=== PATIENT | female | born 1940 | race Caucasian/White ===

== ENCOUNTER → 2018-01-12 | Outpatient (CLI) | payer OTHER | LOC: HYPER 06:59 → EDBD 06:59 → HYPER 15:21 | DX: T81.31XA Disruption of external operation (surgical) wound, not elsewhere classified, initial encounter (principal); I10 Essential (primary) hypertension; M10.9 Gout, unspecified; F32.9 Major depressive disorder, single episode, unspecified; F41.1 Generalized anxiety disorder; F41.0 Panic disorder [episodic paroxysmal anxiety]; Z79.4 Long term (current) use of insulin; Z87.891 Personal history of nicotine dependence; Z90.710 Acquired absence of both cervix and uterus; Y92.89 Other specified places as the place of occurrence of the external cause; Y83.8 Other surgical procedures as the cause of abnormal reaction of the patient, or of later complication, without mention of misadventure at the time of the procedure ==

== ENCOUNTER → 2018-01-22 | Outpatient (CLI) | payer OTHER ==
[2018-01-22 10:05] LABS: CREATININE 1.1 mg/dL (0.6-1.0)
== END | disposition home or self-care (01) ==
LOC: RAD 09:09
PROVIDERS: Emergency Medicine
DX: L02.211 Cutaneous abscess of abdominal wall (principal); E11.9 Type 2 diabetes mellitus without complications; Z90.710 Acquired absence of both cervix and uterus; Z98.890 Other specified postprocedural states; Z79.899 Other long term (current) drug therapy; Z91.040 Latex allergy status

== ENCOUNTER → 2018-01-28 | Outpatient (CLI) | payer OTHER | LOC: HYPER 07:00 | DX: T81.89XD Other complications of procedures, not elsewhere classified, subsequent encounter (principal); E11.9 Type 2 diabetes mellitus without complications; I10 Essential (primary) hypertension; M10.9 Gout, unspecified; F32.9 Major depressive disorder, single episode, unspecified; F41.1 Generalized anxiety disorder; F41.0 Panic disorder [episodic paroxysmal anxiety]; Z86.14 Personal history of Methicillin resistant Staphylococcus aureus infection; Z79.4 Long term (current) use of insulin; Z87.891 Personal history of nicotine dependence; Y83.8 Other surgical procedures as the cause of abnormal reaction of the patient, or of later complication, without mention of misadventure at the time of the procedure ==

== ENCOUNTER → 2018-02-15 | Outpatient (CLI) | payer OTHER | LOC: HYPER 06:53 | DX: T81.89XD Other complications of procedures, not elsewhere classified, subsequent encounter (principal); M10.9 Gout, unspecified; I10 Essential (primary) hypertension; F32.9 Major depressive disorder, single episode, unspecified; F41.1 Generalized anxiety disorder; F41.0 Panic disorder [episodic paroxysmal anxiety]; Z86.14 Personal history of Methicillin resistant Staphylococcus aureus infection; Z79.4 Long term (current) use of insulin; Z87.891 Personal history of nicotine dependence; Y83.8 Other surgical procedures as the cause of abnormal reaction of the patient, or of later complication, without mention of misadventure at the time of the procedure ==

== ENCOUNTER → 2018-03-22 | Outpatient (CLI) | payer OTHER | LOC: HYPER 07:05 | DX: T81.89XD Other complications of procedures, not elsewhere classified, subsequent encounter (principal); E11.9 Type 2 diabetes mellitus without complications; I10 Essential (primary) hypertension; M10.9 Gout, unspecified; F32.9 Major depressive disorder, single episode, unspecified; F41.1 Generalized anxiety disorder; Z86.14 Personal history of Methicillin resistant Staphylococcus aureus infection; Z79.4 Long term (current) use of insulin; Z87.891 Personal history of nicotine dependence; Y83.8 Other surgical procedures as the cause of abnormal reaction of the patient, or of later complication, without mention of misadventure at the time of the procedure ==

== ENCOUNTER → 2018-04-22 | Outpatient (CLI) | payer OTHER | LOC: HYPER 05:30 | DX: T81.89XD Other complications of procedures, not elsewhere classified, subsequent encounter (principal); E11.9 Type 2 diabetes mellitus without complications; I10 Essential (primary) hypertension; M10.9 Gout, unspecified; F32.9 Major depressive disorder, single episode, unspecified; F41.1 Generalized anxiety disorder; F41.0 Panic disorder [episodic paroxysmal anxiety]; Z79.4 Long term (current) use of insulin; Z86.14 Personal history of Methicillin resistant Staphylococcus aureus infection; Z87.891 Personal history of nicotine dependence; Y83.8 Other surgical procedures as the cause of abnormal reaction of the patient, or of later complication, without mention of misadventure at the time of the procedure ==

== ENCOUNTER → 2018-06-29 | Outpatient (CLI) | payer OTHER | LOC: HYPER 05-20 07:20 | DX: T81.89XD Other complications of procedures, not elsewhere classified, subsequent encounter (principal); E11.9 Type 2 diabetes mellitus without complications; I10 Essential (primary) hypertension; M10.9 Gout, unspecified; F32.9 Major depressive disorder, single episode, unspecified; F41.9 Anxiety disorder, unspecified; Z87.891 Personal history of nicotine dependence; Z86.14 Personal history of Methicillin resistant Staphylococcus aureus infection; Z79.4 Long term (current) use of insulin; Y83.8 Other surgical procedures as the cause of abnormal reaction of the patient, or of later complication, without mention of misadventure at the time of the procedure ==

== ENCOUNTER → 2019-07-04 | Outpatient (CLI) | payer OTHER ==
[~2019-07-04] VITALS: Ht 170.2 cm; Wt 95.3 kg
[~2019-07-04] MED LIST: ALLOPURINOL 30300 M1 PO; DICLOFENAC SODI75 MG PO; LIPITOR 40 MG T40 M1 PO; METFORMIN HCL500 MG PO; NEURONTIN600 MG PO; NORCO 10-325 T1 EACH PO; VALSARTAN320 MG PO; VENLAFAXINE HCL75 M1 PO; VICTOZA 3-0.6 MG/0.1 SUBQ; VITAMIN D35000 UNI2 PO
[2019-07-04 13:40] LABS: URINE BILIRUBIN NEGATIVE (Negative); URINE BLOOD NEGATIVE (Negative); URINE CLARITY CLEAR; URINE COLOR YELLOW; URINE GLUCOSE-RANDOM* NEGATIVE (Negative); URINE KETONES NEGATIVE (Negative); URINE LEUKOCYTES-REFLEX 2+ (Negative); URINE NITRITE-REFLEX NEGATIVE (Negative); URINE PROTEIN (DIPSTICK) NEGATIVE (Negative); URINE SPECIFIC GRAVITY 1.015 (1.005-1.035); URINE UROBILINOGEN 0.2 E.U./dl (0.2-1.0)
[2019-07-04 13:43] LABS: BACTERIA-REFLEX 1-9 Few /HPF (None Seen); CASTS None Seen /LPF (None Seen); CRYSTALS None Seen /LPF (None Seen); SQUAMOUS 4-10 Moderate /LPF (0-3); URINE RBC None Seen /HPF (0-2); URINE WBC-REFLEX 0-5 Rare /HPF (0-5)
[2019-07-04 14:11] LABS: HEMATOCRIT 38.7 % (37.0-47.0); HEMOGLOBIN 12.3 gm/dL (12.0-15.0); MCH 28.8 pg (26.0-34.0); MCHC 31.9 g/dL (28.0-37.0); MCV 90.3 fL (80.0-100.0); RBC 4.28 mil/uL (4.20-5.00); RDW 15.9 % (10.5-14.5); WBC 5.4 thou/uL (4.0-11.0)
[2019-07-04 14:28] LABS: ALBUMIN 3.6 g/dL (3.4-5.0); CALCIUM 9.1 mg/dL (8.5-10.1); CREATININE 1.2 mg/dL (0.6-1.0); POTASSIUM 4.7 mmol/L (3.5-5.1)
[2019-07-04 14:29] LABS: PROTIME 10.1 Seconds (9.3-11.4)
--- NOTE | 2019-07-29 11:43 | EKG ---
[facility] [place] [address] ELECTROCARDIOGRAM REPORT Name: ALVA RANDOLPH Room #: REG [facility]#: [id number] Admission: 07/04/19 Attend Phys: Zachery Valentine MD Discharge: Date of : 44 Report #: [id number] THIS REPORT FOR: cc: Physician not on staff Physician not on staff Raz Easley MD [facility] ~ THIS REPORT FOR: //name// [facility] Test Date: 2019-07-04 Test Time: 14:08:54 Pat Name: ALVA RANDOLPH Department: Room: Gender: F Final Application Reviewer: maira : 1940 Requested By: Zachery Valentine Order Number: [id number] MD: Raz Easley Measurements Intervals [place] Rate: 52 P: 35 CO: 214 QRS: -18 QRSD: 106 T: 66 QT: 409 QTc: 381 Interpretive Statements Sinus rhythm Ventricular premature complex Inferior infarct, old Anterior infarct, old No previous ECG available for comparison Electronically Signed On 07-04-2019 15:54:09 CDT by Raz Easley [email or web address] <ELECTRONICALLY SIGNED> By: Raz Easley MD, [facility] 07/04/19 1554 1408 1408 Raz Easley MD, [facility] /EPI
== END ==
LOC: PAC 12:35 → TBA 07-18 08:05 → PRE 07-18 08:34 → EDSTATUS 07-18 13:25 → PRE 07-18 16:03
PROVIDERS: Orthopaedic Surgery
DX: M17.12 Unilateral primary osteoarthritis, left knee (principal); I25.2 Old myocardial infarction

== ENCOUNTER 2019-09-28 13:14 | Day surgery (SDC) | payer OTHER ==
[2019-09-21 11:39] LABS: HEMATOCRIT 39.6 % (37.0-47.0); MCH 29.7 pg (26.0-34.0); MCHC 32.7 g/dL (28.0-37.0); MCV 90.7 fL (80.0-100.0); RBC 4.37 mil/uL (4.20-5.00); WBC 4.7 thou/uL (4.0-11.0)
[2019-09-21 11:42] LABS: URINE BILIRUBIN NEGATIVE (Negative); URINE BLOOD NEGATIVE (Negative); URINE CLARITY CLEAR; URINE COLOR YELLOW; URINE GLUCOSE-RANDOM* 1+ (Negative); URINE KETONES NEGATIVE (Negative); URINE NITRITE-REFLEX NEGATIVE (Negative); URINE PROTEIN (DIPSTICK) NEGATIVE (Negative); URINE SPECIFIC GRAVITY 1.025 (1.005-1.035); URINE UROBILINOGEN 0.2 E.U./dl (0.2-1.0)
[2019-09-21 12:00] LABS: PROTIME 9.7 Seconds (9.3-11.4); URINE LEUKOCYTES-REFLEX 1+ (Negative)
[2019-09-21 12:08] LABS: CALCIUM 9.1 mg/dL (8.5-10.1); CREATININE 1.1 mg/dL (0.6-1.0); POTASSIUM 4.7 mmol/L (3.5-5.1)
[2019-09-21 13:07] LABS: CASTS None Seen /LPF (None Seen); SQUAMOUS 0-3 Few /LPF (0-3)
[2019-09-21 13:08] LABS: BACTERIA-REFLEX 1-9 Few /HPF (None Seen); CRYSTALS None Seen /LPF (None Seen); URINE RBC None Seen /HPF (0-2); URINE WBC-REFLEX 6-15 Few /HPF (0-5)
[2019-09-22 01:08] LABS: GLYCOHEMOGLOBIN (HGB A1C) 7.3 % (4.8-5.6)
[~2019-09-28] VITALS: Ht 170.2 cm; Wt 98.4 kg
[~2019-09-28 13:14] MED LIST changes: +VALSARTAN40 MG PO
[2019-09-28 14:45] VITALS: BP 170/101
[2019-09-28 18:03] VITALS: BP 150/84
[2019-09-28 18:28] VITALS: BP 150/84
[2019-09-28 19:15] VITALS: BP 159/74
--- NOTE | 2019-09-28 19:50 | NUR ---
PT CARE ASSUMED AT 1800 FROM THE OR. PT UP TO THE BATHROOM WITH NO URINATION. SHE EXPERIENCED NAUSEA AND WAS GIVEN ZOFRAN. DIET HAS NOT BEEN ADVANCED YET. NO VOMITTING. PT DECLINES OVI HOSES BUT WILL TOLERATE SCD'S. POLARPAC AND MARI DRESSING IN PLACE. ADMISSION COMPLEETE AND CONSENTS SIGNED. PAIN IS TOLERATED WELL WITH MEDICATION. FALL PROTOCOL IN PLACE. CALL LIGHT IN REACH. WILL CONTINUE TO MONITOR. REPORT GIVEN TO HORACE CHANG.
[2019-09-29 02:40] LABS: HEMATOCRIT 36.9 % (37.0-47.0); HEMOGLOBIN 11.8 gm/dL (12.0-15.0); MCH 29.2 pg (26.0-34.0); MCV 91.4 fL (80.0-100.0); RBC 4.04 mil/uL (4.20-5.00); RDW 15.8 % (10.5-14.5); WBC 7.6 thou/uL (4.0-11.0)
--- NOTE | 2019-09-29 03:25 | NUR ---
PT AOX4. PT REPORTS PAIN IN LEFT KNEE. PT RECEIVING PRN PO NORCO Q4HR AND HAS PRN TORADOL Q8HR X6 DOSES AVAILABLE. PT AMBULATES WITH WALKER AND X1 ASSIST TO TOILET. PT INDEPENDENT WITH REPOSITIONING. PT DENIES SOB. PT REPORTS ONSET OF REDDENED AREA FROM ANTERIOR OF HAND TO FOREARM. AREA OBSERVED TENDER AND SWOLLEN, PAIN NOTED TO INCREASE WHEN PT MAKES A FIST. LAYBOY OPERATOR PROVIDER NOTIFIED, RECEIVED ORDERS FOR STAT URIC ACID LAB, PO ALLUPURINOL 150MG QHS AND ENCOURAGED TO APPLY WARM COMPRESS FOR POSSIBLE GOUT EXACERBATION. PT TOLERATING PO INTAKE OF FLUIDS AND REGULAR DIET. PT ENCOURAGED TO NOTIFY STAFF FOR ALL NEEDS. PT REQUESTING ELEVATED TOILET. CALL LIGHT WITHIN REACH, BED IN LOWEST POSITION, BED ALARM ON. WILL CONTINUE TO MONITOR. WILL CONTINUE TO MONITOR.
[2019-09-29 05:00] VITALS: BP 164/63
[2019-09-29 07:32] VITALS: BP 141/82
--- NOTE | 2019-09-29 11:49 | NUR ---
ASSESSMENT: CM REVIEWED CHART AND SPOKE WITH PATIENT. PT IS ALERT AND ORIENTED X4. PT IS A TOTAL KNEE REPLACEMENT. PT REPORTS SHE LIVES IN A FIRST FLOOR APT WITH HER . PT REPORTS SHE HAS NO STEPS TO ENTER THE APT OR ONCE INSIDE. THAT SHE HAS A CANE AT HOME BUT IS GOING TO NEED A WALKER. CM ASKED IF PT HAD A PREFERENCE OF [employer] AND PT DOES NOT. CM NOTIFIED LIASON AT [facility] [facility] TO SEE IF THEY CAN PROVIDE HER WITH A WALKER. PT REPORTS SHE HAD HH MANY YEARS AGO BUT SHE HAS OUTPATIENT THERAPY SCHEDULED TO START TOMORROW AT [facility] OFF [address]. PT REPORTS SHE WILL HAVE NO OTHER NEEDS THEN A WALKER. CM WILL CONTINUE TO FOLLOW AND AWAIT TO HEAR BACK FROM [facility].
[2019-09-29 14:34] VITALS: BP 141/82
--- NOTE | 2019-09-29 15:10 | NUR ---
PT ASSESSED AT START OF SHIFT. PT PROGRESSING WELL W/ THERAPY. PAIN UNDER CONTROL. DSNG D&I. DISCHARED AT THIS TIME W/ ALL BELONGINGS.
--- NOTE | 2019-10-06 12:09 | O ---
[facility] [place] [address] OPERATIVE REPORT Name: ALVA RANDOLPH Room #: DEP [facility] M..#: [id number] Admission: 09/28/19 Attend Phys: Zachery Valentine MD Discharge: 09/29/19 Date of : 44 Report #: [id number] THIS REPORT FOR: cc: LIZETT NIÑO Physician not on staff Zachery Valentine MD ~ CC: LIZETT NIÑO Physician staff Zachery Valentine DATE OF SERVICE: 09/28/2019 PREOPERATIVE DIAGNOSIS: Left knee osteoarthritis. POSTOPERATIVE DIAGNOSIS: Left knee osteoarthritis. PROCEDURE: Left total knee arthroplasty using Navio robotic family practice physician assistant. SURGEON: Zachery Valentine MD. MEAL TEMPERER: Agnes Epps PA-C INDICATIONS FOR MEAL TEMPERER: Throughout the case, extensive retraction and manipulation of the knee was required. This was afforded to my family practice physician assistant. ANESTHESIA: LMA with an adductor canal block. IMPLANTS: [employer] size 6 Journey II BCS cobalt chrome femur, size 4 tibia, size 10 polyethylene and size 32 patella. TOURNIQUET TIME: 61 minutes. ESTIMATED BLOOD LOSS: 25 mL. COMPLICATIONS: None. SPECIMENS: None. CONDITION UPON LEAVING THE OPERATING ROOM: Stable. INDICATIONS FOR PROCEDURE: The patient is a 79-year-old female with severe left knee osteoarthritis. She failed conservative treatment for this and after discussion with her, she elected for left total knee arthroplasty. DESCRIPTION OF PROCEDURE: Risks, benefits, alternatives, and complications were discussed in detail with the patient including but not limited to risk of [facility] [address] [place] [address] OPERATIVE REPORT Name: ALVA RANDOLPH Room #: DEP [facility] M.R.#: [id number] Admission: 09/28/19 Attend Phys: Zachery Vlaentine MD Discharge: 09/29/19 Date of : 44 Report #: [id number] anesthesia, risk of damage to nerves, arteries, blood vessels, risk for infection, bleeding, risk for continued knee pain and need for reoperation. Informed consent was obtained from the patient. Left knee was appropriately marked in the preoperative holding area. Adductor canal block was placed by anesthesia. IV Ancef was given for preoperative antibiotics. She was brought to the operating room and placed in supine position on the operating room table. LMA anesthesia was induced without complication. Tourniquet was placed on the left thigh. Left lower extremity was prepped and draped in normal sterile fashion. Timeout was performed properly identifying the patient and procedure as well as the instrumentation and implants. All in the operating room were in agreement. Left lower extremity was exsanguinated, tourniquet was inflated. Tourniquet time was 61 minutes. Standard midline approach to the knee was made with #10-blade through the skin. Dissection was taken down sharply to the fascia and deep flaps were developed medially and laterally. Fresh #10-blade was used to make a medial parapatellar arthrotomy and the knee was inspected. There was severe tricompartmental osteoarthritis. ACL and PCL were removed sharply. Reference pins were placed in the femur and the tibia. The knee was then digitally mapped using the One[employer] robotic system. Intraoperative plan was made. We sized the size 6 femur with a size 4 tibia and a size 10 spacer. After acceptance of the intraoperative plan, the distal femoral cut was made with a Navio lino. The distal femoral cutting block was then pinned in place and chamfer cuts were made. Attention was turned to the tibia. Menisci removed with Bovie cautery. Tibial resection guide was pinned in place using the Navio for placement and tibial resection was made. After this, flexion and extension gaps were checked and found to have good balance in flexion and extension both medially and laterally. Tibia was sized, found to be a size 4. Size 4 tibial trial was placed, pinned and punched. A size 6 femoral trial was placed and the box cut was made. This was then trialed with a size 10 polyethylene. Knee was taken through range of motion, found to be stable, found to have good balance in flexion and extension both medially and laterally. This was verified both digitally as well as manually. A 9 mm was resected from the posterior surface of the patella and a size 32 patellar trial button was placed. Knee was taken through range of motion, found to be stable, found to have good patellar tracking. Trial components were removed. Bony ends were thoroughly irrigated with normal saline. A final size 4 tibia, size 6 Journey II BCS cobalt chrome femur and a size 32 patella were cemented in place using standard cementation techniques. While the cement cured, a periarticular injection consisting of morphine, ropivacaine, epinephrine and Toradol was placed around the knee joint capsule. After the cement cured, tourniquet was deflated. Hemostasis was obtained with Bovie cautery. Final size 10 polyethylene was placed. A gram of vancomycin was placed deep in the joint. The fascia was closed with 0 Vicryl, skin was closed with 2-0 Vicryl, 3-0 Monocryl, Dermabond and a MARI dressing was [address] [address] OPERATIVE REPORT Name: ALVA RANDOLPH Room #: DEP [facility] CarsonCarlos#: [id number] Admission: 09/28/19 Attend Phys: Zachery Valentine MD Discharge: 09/29/19 Date of : 44 Report #: [id number] applied. The patient tolerated this procedure well and went to recovery room under care of anesthesia postoperatively. <ELECTRONICALLY SIGNED> By: Zachery Valentine MD 10/06/19 1209 1650 1710 Zachery Valentine MD /nt
== END 2019-09-29 15:56 | disposition home or self-care (01) ==
LOC: OR 13:14 → TBA 13:15 → PRE 13:50 → 4S 17:48 → OR 09-29 15:56
PROVIDERS: ATTEND Orthopaedic Surgery
DX: M17.12 Unilateral primary osteoarthritis, left knee (principal); M25.562 Pain in left knee; I10 Essential (primary) hypertension; E11.40 Type 2 diabetes mellitus with diabetic neuropathy, unspecified; M19.90 Unspecified osteoarthritis, unspecified site; E78.5 Hyperlipidemia, unspecified; F32.9 Major depressive disorder, single episode, unspecified; M10.9 Gout, unspecified; Z98.890 Other specified postprocedural states; Z79.899 Other long term (current) drug therapy; Z98.41 Cataract extraction status, right eye; Z98.42 Cataract extraction status, left eye; Z90.710 Acquired absence of both cervix and uterus; Z11.59 Encounter for screening for other viral diseases; Z87.891 Personal history of nicotine dependence; Z91.040 Latex allergy status; Z88.8 Allergy status to other drugs, medicaments and biological substances
CPT/HCPCS: 27447; S2900; 10102; 50010; 50101; 50415; 50954; 51130; 51225; 51320; 52001; 52282; 53000; 53078; 54118; 56527; 56528; 57095; 57103; 57110; 57127; 57180; 57952; 62110; 62900; 70005